=== PATIENT | male | born 1995 | race Caucasian/White ===

== ENCOUNTER 2023-03-27 13:16 | Emergency (ER) | payer MEDICAID, OTHER, SELFPAY ==
[~2023-03-27] VITALS: Ht 185.4 cm; Wt 66.0 kg
[2023-03-27 13:17] VITALS: BP 132/72; TEMP 98.1; O2SAT 93
[2023-03-27] MEDS ORDERED: IBUPROFEN 600MG TAB PO ONE (14:35)
[2023-03-27] MEDS ORDERED: IBUP-1022 PO (14:39)
== END 2023-03-27 14:48 | disposition home or self-care (01) ==
LOC: M ED 14:47
DX: S62.631A Displaced fracture of distal phalanx of left index finger, initial encounter for closed fracture (principal); X58.XXXA Exposure to other specified factors, initial encounter; Y92.009 Unspecified place in unspecified non-institutional (private) residence as the place of occurrence of the external cause; Y93.9 Activity, unspecified; Y99.9 Unspecified external cause status